=== PATIENT | male | born 1990 | race American Indian/Alaskan Native ===

== ENCOUNTER 2017-06-26 18:04 | Emergency (ER) | payer MEDICAID, OTHER ==
[2017-06-26 18:13] VITALS: BP 130/67; PULSE 95; RESP 18; TEMP 98.9; O2SAT 97
--- NOTE | 2017-06-26 18:45 | ED PDOC ---
HPI: General Adult Time Seen by Provider: 06/26/17 18:10 Chief Complaint (Nursing): Flu-like Symptoms Chief Complaint (Provider): Cough History Per: Patient History/Exam Limitations: no limitations Onset/Duration Of Symptoms: Days (x2), Waxing/Waning Current Symptoms Are (Timing): Still Present Additional Complaint(s): 27 year old male presents to the ED for a cough x3 days. Denies fever, vomiting nausea, vomiting, diarrhea. Past Medical History Reviewed: Historical Data, Nursing Documentation, Vital Signs Vital Signs: Last Vital Signs Temp 98.9 F 06/26/17 18:09 Pulse 95 H 06/26/17 18:09 Resp 18 06/26/17 18:09 BP 130/67 06/26/17 18:09 Pulse Ox 97 06/26/17 18:09 - Medical History PMH: Asthma (as a child) Denies: Chronic Kidney Disease - Surgical History Surgical History: No Surg Hx - Family History Family History: States: Unknown Family Hx - Social History Current smoker - smoking cessation education provided: Yes Ex-Smoker (has not smoked in the last 12 months): Yes Alcohol: None Drugs: Denies - Home Medications Home Medications: Ambulatory Orders Medication Instructions Recorded Carvedilol 6.25 mg PO Q12 #60 tab 10/10/14 Lisinopril 5 mg PO DAILY #30 tab 10/10/14 Albuterol HFA [Ventolin HFA 90 2 puff IH Q4 PRN #1 unit 03/11/16 mcg/actuation (8 g)] Azithromycin [Zithromax] 250 mg PO DAILY #6 tab 03/11/16 Promethazine/Codeine 5 ml PO Q12 PRN #100 ml 06/26/17 [Codeine/Promethazine 10 MG/5 Ml-6.25 MG/5 Ml] Pseudoephedrine [Sudafed Tab] 60 mg PO Q6 PRN #12 tab 06/26/17 - Allergies Allergies/Adverse Reactions: Allergies Allergy/AdvReac Type Severity Reaction Status Date / Time No Known Allergies Allergy Verified 06/26/17 18:09 Review of Systems ROS Statement: Except As Marked, All Systems Reviewed And Found Negative Constitutional: Negative for: Fever Respiratory: Positive for: Cough Gastrointestinal: Negative for: Nausea, Vomiting, Diarrhea Physical Exam - Reviewed Nursing Documentation Reviewed: Yes Vital Signs Reviewed: Yes - Physical Exam Appears: Positive for: Non-toxic, No Acute Distress Head Exam: Positive for: NORMAL INSPECTION Skin: Positive for: Normal Color, Warm, Dry. Negative for: Rash Eye Exam: Positive for: Normal appearance, EOMI, PERRL. Negative for: Nystagmus ENT: Negative for: Normal ENT Inspection (throat mildly irritated.), Nasal Congestion, Tonsillar Exudate, Tonsillar Swelling Cardiovascular/Chest: Positive for: Regular Rate, Rhythm, Chest Non Tender. Negative for: Tachycardia Respiratory: Positive for: Normal Breath Sounds. Negative for: Wheezing, Respiratory Distress Neurologic/Psych: Positive for: Alert, Oriented, Gait - ECG O2 Sat by Pulse Oximetry: 97 (RA) Pulse Ox Interpretation: Normal Medical Decision Making Medical Decision Makin Initial Impression 27 y/o male presenting with cough Initial Plan: * Reevaluation Documented by Марина Irving acting as a scribe for Lucas Levine PA-C. All medical record entries made by the Scribe were at my direction and personally dictated by me. I have reviewed the chart and agree that the record accurately reflects my personal performance of the history, physical exam, medical decision making, and the department course for this patient. I have also personally directed, reviewed, and agree with the discharge instructions and disposition. Disposition - Clinical Impression Clinical Impression: Upper respiratory infection Counseled Patient/Family Regarding: Studies Performed, Need For Followup - Disposition Referrals: [facility] [Outside] Disposition: Routine/Home Disposition Time: 18:40 Condition: FAIR Prescriptions: Promethazine/Codeine [Codeine/Promethazine 10 MG/5 Ml-6.25 MG/5 Ml] 5 ml PO Q12 PRN #100 ml PRN Reason: Cough Pseudoephedrine [Sudafed Tab] 60 mg PO Q6 PRN #12 tab PRN Reason: Nasal Congestion Instructions: Upper Respiratory Infection (ED) Forms: [email or web address] (Italian), [facility] ED School/Work Excuse - POA Present On Arrival: None
== END 2017-06-26 18:33 | disposition home or self-care (01) ==
LOC: H.ER 18:04
DX: J06.9 Acute upper respiratory infection, unspecified (principal); F17.200 Nicotine dependence, unspecified, uncomplicated

== ENCOUNTER 2018-11-27 13:01 | Inpatient (IN) | payer MEDICAID, OTHER ==
[2018-11-27] MEDS ORDERED: Albuterol-Ipratrop 3 mg / 0.5 (3 ml) UD INH STA (13:13)
[2018-11-27] MEDS ORDERED: Sodium Chloride 0.9% 1,000 ML IV STA (13:15)
[2018-11-27] MEDS ORDERED: Albuterol-Ipratrop 3 mg / 0.5 (3 ml) UD ONE (13:29)
[2018-11-27 13:32] LABS: BASO % 0.4 % (0.0-2.0); EOS % 0.5 % (0.0-4.0); HEMOGLOBIN 18.2 g/dL (12.0-18.0); LYMPH # 1.7 K/uL (1.0-4.3); LYMPH % 22.2 % (20.0-40.0); MEAN CELL VOLUME 87.5 fl (80.0-94.0); MEAN CORPUSCULAR HEMOGLOBIN 29.3 pg (27.0-31.0); MEAN CORPUSCULAR HGB CONC 33.5 g/dL (33.0-37.0); MEAN PLATELET VOLUME 10.2 fl (7.2-11.7); MONO # 0.4 K/uL (0.0-0.8); MONO % 5.7 % (0.0-10.0); NEUT # 5.4 K/uL (1.8-7.0); NEUT % 71.2 % (50.0-75.0); NRBC % 0.3 % (0.0-0.0); RBC 6.21 Mil/uL (4.40-5.90); RED CELL DISTRIBUTION WIDTH 14.2 % (11.5-14.5); WHITE BLOOD COUNT 7.6 K/uL (4.8-10.8)
--- NOTE | 2018-11-27 13:36 | RAD ---
Date of service: 11/27/2018 HISTORY: possible admission COMPARISON: 03/11/2016 TECHNIQUE: 1 view obtained. FINDINGS: LUNGS: No consolidation. The right infrahilar bronchovascular markings appear coarse-study slightly rotated towards the right. Some mild inflammatory changes here bronchitis is 1 consideration. Chronicity of this is unknown but not present on the 2015 study as such. PLEURA: No significant pleural effusion identified, no pneumothorax apparent. CARDIOVASCULAR: No aortic atherosclerotic calcification present. Cardiomegaly-similar no pulmonary vascular congestion. OSSEOUS STRUCTURES: No significant abnormalities. VISUALIZED UPPER ABDOMEN: Normal. OTHER FINDINGS: None. IMPRESSION: No dense consolidation. Possible interval right infrahilar Mini hilar bronchial thickening/a perihilar inflammatory changes. Cardiomegaly as before.
[2018-11-27 13:51] LABS: INR 1.2; PROTHROMBIN TIME 13.5 Seconds (9.8-13.1)
[2018-11-27 13:54] LABS: PARTIAL THROMBOPLASTIN TIME 29.8 Seconds (25.6-37.1)
[2018-11-27 13:57] LABS: ALB/GLOB RATIO 1.5 (1.0-2.1); ALBUMIN 3.8 g/dL (3.5-5.0); ALT/SGPT 119 U/L (21-72); AST/SGOT 87 U/L (17-59); BLOOD UREA NITROGEN 12 mg/dl (9-20); CALCIUM 9.1 mg/dL (8.4-10.2); GFR NON-AFRICAN AMERICAN > 60
[2018-11-27 14:09] LABS: B-TYPE NATRIURETIC PEPTIDE 4400 pg/ml (0-450)
--- NOTE | 2018-11-27 14:14 | ED PDOC ---
HPI: SOB/CHF/COPD Time Seen by Provider: 11/27/18 13:13 Chief Complaint (Nursing): Shortness Of Breath Chief Complaint (Provider): Shortness Of Breath History Per: Patient History/Exam Limitations: no limitations Onset/Duration Of Symptoms: Days (x 3) Current Symptoms Are (Timing): Still Present Quality: Squeezing Additional Complaint(s): 28 year old male with no significant medical history presents to the ED for evaluation of worsening shortness of breath for 3 days. Patient feels like he is unable to take a deep breath because of a squeezing sensation in his chest. Patient denies a history of asthma, fever, cough, wheezing, sick contacts or leg swelling. PMD: none provided Past Medical History Reviewed: Historical Data, Nursing Documentation, Vital Signs Vital Signs: Last Vital Signs Temp 97.5 F L 11/27/18 13:10 Pulse 52 L 11/27/18 13:10 Resp 18 11/27/18 13:33 BP 129/87 11/27/18 13:10 Pulse Ox 97 11/27/18 13:10 Primary Care Provider: FAMILY PROVIDER,NO - Medical History PMH: Asthma (as a child) Denies: Chronic Kidney Disease - Surgical History Surgical History: No Surg Hx - Family History Family History: States: Unknown Family Hx - Social History Drugs: Cannabis (occasional; not for weeks) - Home Medications Home Medications: Ambulatory Orders Medication Instructions Recorded Aspirin [Aspirin Chewable] 81 mg PO DAILY #30 tab 11/28/18 Carvedilol [Coreg] 12.5 mg PO Q12 #60 tab 11/28/18 Furosemide [Lasix] 20 mg PO DAILY #30 tablet 11/28/18 Furosemide [Lasix] 20 mg PO DAILY #30 tablet 11/28/18 Lisinopril [Zestril] 5 mg PO DAILY #30 tab 11/28/18 - Allergies Allergies/Adverse Reactions: Allergies Allergy/AdvReac Type Severity Reaction Status Date / Time No Known Allergies Allergy Verified 06/26/17 18:09 Review of Systems ROS Statement: Except As Marked, All Systems Reviewed And Found Negative Constitutional: Negative for: Fever Cardiovascular: Positive for: Chest Pain (squeezing) Respiratory: Positive for: Shortness of Breath. Negative for: Cough, Wheezing Physical Exam - Reviewed Nursing Documentation Reviewed: Yes Vital Signs Reviewed: Yes - Physical Exam Appears: Positive for: Non-toxic, No Acute Distress Head Exam: Positive for: ATRAUMATIC, NORMAL INSPECTION, NORMOCEPHALIC Skin: Positive for: Normal Color, Warm, Dry Eye Exam: Positive for: EOMI, Normal appearance, PERRL Neck: Positive for: Normal, Painless ROM, Supple Cardiovascular/Chest: Positive for: Tachycardia (with regular rhythm). Negative for: Murmur Respiratory: Positive for: Normal Breath Sounds. Negative for: Respiratory Distress Gastrointestinal/Abdominal: Positive for: Normal Exam, Soft Back: Positive for: Normal Inspection Extremity: Positive for: Normal ROM Neurological/Psych: Positive for: Awake, Alert, Normal Tone, Oriented (x 3). Negative for: Motor/Sensory Deficits - Laboratory Results Result Diagrams: 11/28/18 05:45 11/28/18 05:45 Lab Results: PT 13.5 Seconds (9.8-13.1) H 11/27/18 13:23 INR 1.2 11/27/18 13:23 APTT 29.8 Seconds (25.6-37.1) 11/27/18 13:23 Total Bilirubin 1.6 mg/dl (0.2-1.3) H 11/27/18 13:23 AST 87 U/L (17-59) H 11/27/18 13:23 ALT 119 U/L (21-72) H D 11/27/18 13:23 Alkaline Phosphatase 55 U/L (38-126) 11/27/18 13:23 Total Protein 6.4 G/DL (6.3-8.2) 11/27/18 13:23 Albumin 3.8 g/dL (3.5-5.0) 11/27/18 13:23 Globulin 2.6 gm/dL (2.2-3.9) 11/27/18 13:23 Albumin/Globulin Ratio 1.5 (1.0-2.1) 11/27/18 13:23 - ECG ECG: Positive for: Viewed By Me O2 Sat by Pulse Oximetry: 97 Pulse Ox Interpretation: Normal Medical Decision Making Medical Decision Makin:11 MDM: EKG: T wave abnormalities on V1-V4 Workup for pulmonary vs cardiac etiologies Labs including lactate CXR Reassess 14:53 Patient with elevated BNP levels. Will be started on Lasix and admitted to the hospitalist for congestive heart failure. 15:[address] Hatch who requests serial troponins and an echo study before admission. --- Scribe Attestation: Documented by Lucina Clarke, acting as a scribe for Winnie Francois MD. Provider Scribe Attestation: All medical record entries made by the Scribe were at my direction and personally dictated by me. I have reviewed the chart and agree that the record accurately reflects my personal performance of the history, physical exam, medical decision making, and the department course for this patient. I have also personally directed, reviewed, and agree with the discharge instructions and disposition. Disposition - Clinical Impression Clinical Impression: Acute on chronic combined systolic (congestive) and diastolic (congestive) heart failure - Patient ED Disposition Is Patient to be Admitted: Yes - Disposition Disposition Time: 14:53 Condition: STABLE
[2018-11-27 15:39] LABS: BARBITURATES, UR NEGATIVE (NEGATIVE); BENZODIAZEPINES, UR NEGATIVE (NEGATIVE); OPIATES, UR NEGATIVE (NEGATIVE); PHENCYCLIDINE, UR NEGATIVE (NEGATIVE)
--- NOTE | 2018-11-27 15:46 | CP.PCM.HP ---
<AnkushKamla - Last Filed: 11/27/18 17:09> History of Present Illness - History of Present Illness History of Present Illness: 28 yo male with history of Myocarditis (diagnosed at age 17) presented to the ED because of dypsnea for 3 days. Reports that he has difficulty breathing when he lays down and needs use more pillows to decrease the dypsnea. Reports he feels a tightness in his chest related to the dypsnea. He reports when he lays down to sleep he wakes up gasping for air and has to sit up to relieve the dypsnea. Denies leg swelling. Denies chest pain. Denies travel, fever, cough, wheezing, recent illness, abdominal pain, nausea or vomiting. ROS: negative except for stated above in the HPI. PMD: none Medical history: Myocarditis at the age of 17- reports he went to [employer] [facility] with security clearance once (does not remember physician's name) and took medication at that time but never followed up. Asthma when he was a child. Surgical history: Denies Social hx: works at a [employer]. Quit smoking 2 weeks ago but smoked 1-2 cigarettes a day for unknown amount of years. Marijuana use of 2-3 per week. Denies alcohol use or illicit drug use. Family history: reports father's side of the family has heart problems but does not know what type of heart problems Allergies: N.K.D.A No home medications ED course: Vital signs stable. EKG: T wave abnormalities on V1-V4 Workup for pulmonary vs cardiac etiologies Labs including lactate CXR Lasix 40mg IVP x1 Present on Admission - Present on Admission Any Indicators Present on Admission: No Past Patient History - Past Medical History & Family History Past Medical History?: Yes - Past Social History Drugs: Cannabis (occasional; not for weeks) - CARDIAC Other/Comment: Hx of Myocarditis - PULMONARY Hx Asthma: Yes (as a child) - NEUROLOGICAL Hx Neurological Disorder: No - HEENT Hx HEENT Problems: No - RENAL Hx Chronic Kidney Disease: No - ENDOCRINE/METABOLIC Hx Endocrine Disorders: No - HEMATOLOGICAL/ONCOLOGICAL Hx Blood Disorders: No - INTEGUMENTARY Hx Dermatological Problems: No - MUSCULOSKELETAL/RHEUMATOLOGICAL Hx Musculoskeletal Disorders: No Hx Falls: No - GASTROINTESTINAL Hx Gastrointestinal Disorders: No - GENITOURINARY/GYNECOLOGICAL Hx Genitourinary Disorders: No - PSYCHIATRIC Hx Psychophysiologic Disorder: No Hx Substance Use: Yes - SURGICAL HISTORY Hx Surgeries: No - ANESTHESIA Hx Anesthesia: No Hx Anesthesia Reactions: No Meds Allergies/Adverse Reactions: Allergies Allergy/AdvReac Type Severity Reaction Status Date / Time No Known Allergies Allergy Verified 06/26/17 18:09 Physical Exam - Constitutional Appears: In Acute Distress - Head Exam Head Exam: NORMAL INSPECTION - Eye Exam Eye Exam: Normal appearance - ENT Exam ENT Exam: Mucous Membranes Moist - Neck Exam Neck exam: Positive for: Normal Inspection - Respiratory Exam Respiratory Exam: Decreased Breath Sounds, Rales. absent: Accessory Muscle Use, Chest Wall Tenderness, Prolonged Expiratory Phase, Rhonchi, Wheezes, Respiratory Distress, Stridor - Cardiovascular Exam Cardiovascular Exam: Tachycardia, +S1, +S2 - GI/Abdominal Exam GI & Abdominal Exam: Normal Bowel Sounds, Soft. absent: Diminished Bowel Sounds, Distended, Firm, Guarding, Rebound, Rigid, Tenderness - Extremities Exam Extremities exam: Positive for: full ROM, normal inspection, pedal pulses present. Negative for: calf tenderness, joint swelling, normal capillary refill, pedal edema, tenderness - Back Exam Back exam: NORMAL INSPECTION - Neurological Exam Neurological exam: Alert, Oriented x3 - Psychiatric Exam Psychiatric exam: Normal Affect, Normal Mood - Skin Skin Exam: Dry, Intact, Normal Color, Warm Results - Vital Signs Recent Vital Signs: Last Vital Signs Temp 97.5 F L 11/27/18 13:10 Pulse 52 L 11/27/18 13:10 Resp 18 11/27/18 13:33 BP 129/87 11/27/18 13:10 Pulse Ox 97 11/27/18 15:21 - Labs Result Diagrams: 11/27/18 13:23 11/27/18 13:23 Labs: Laboratory Results - last 24 hr 11/27/18 11/27/18 11/27/18 13:23 13:23 13:23 WBC 7.6 RBC 6.21 H Hgb 18.2 H Hct 54.3 H MCV 87.5 MCH 29.3 MCHC 33.5 RDW 14.2 Plt Count 205 MPV 10.2 Neut % (Auto) 71.2 Lymph % (Auto) 22.2 [place] % (Auto) 5.7 Eos % (Auto) 0.5 Baso % (Auto) 0.4 Neut # (Auto) 5.4 Lymph # (Auto) 1.7 [place] # (Auto) 0.4 Eos # (Auto) 0.0 Baso # (Auto) 0.0 PT 13.5 H INR 1.2 APTT 29.8 D-Dimer, Quantitative Cancelled Sodium 138 Potassium 3.9 Chloride 104 Carbon Dioxide 24 Anion Gap 14 BUN 12 Creatinine 0.9 Est GFR ( Amer) > 60 Est GFR (Non-Af Amer) > 60 Random Glucose 107 Lactic Acid Calcium 9.1 Total Bilirubin 1.6 H AST 87 H ALT 119 H D Alkaline Phosphatase 55 Troponin I 0.0790 NT-Pro-B Natriuret Pep 4400 H Total Protein 6.4 Albumin 3.8 Globulin 2.6 Albumin/Globulin Ratio 1.5 Urine Opiates Screen Urine Methadone Screen Ur Barbiturates Screen Ur Phencyclidine Scrn Ur Amphetamines Screen U Benzodiazepines Scrn U Oth Cocaine Metabols U Cannabinoids Screen 11/27/18 11/27/18 11/27/18 13:23 15:00 15:00 WBC RBC Hgb Hct MCV MCH MCHC RDW Plt Count MPV Neut % (Auto) Lymph % (Auto) [place] % (Auto) Eos % (Auto) Baso % (Auto) Neut # (Auto) Lymph # (Auto) [place] # (Auto) Eos # (Auto) Baso # (Auto) PT INR APTT D-Dimer, Quantitative 778 H Sodium Potassium Chloride Carbon Dioxide Anion Gap BUN Creatinine Est GFR ( Amer) Est GFR (Non-Af Amer) Random Glucose Lactic Acid 1.8 Calcium Total Bilirubin AST ALT Alkaline Phosphatase Troponin I NT-Pro-B Natriuret Pep Total Protein Albumin Globulin Albumin/Globulin Ratio Urine Opiates Screen Negative Urine Methadone Screen Negative Ur Barbiturates Screen Negative Ur Phencyclidine Scrn Negative Ur Amphetamines Screen Negative U Benzodiazepines Scrn Negative U Oth Cocaine Metabols Negative U Cannabinoids Screen Positive H Assessment & Plan - Assessment and Plan (Free Text) Assessment: 28 yo male with history of Myocarditis (diagnosed at age 17) presented to the ED because of dypsnea for 3 days admitted for CHF. Plan: CHF exacerbation - Admit to telemetry - Pro BNP: 4400 - Chest Xray: cardiomegaly - ECHO 10/08/14 : Left ventricle moderately dilated; severe hypokinesia; left ventricle systolic function severely impaired. EF: 15-20% ; RVSP: 33 mmHg - Cardiac Consult: Dr. Hatch - F/U repeat ECHO - Lactic acid WNL - Lasix 40mg IVP daily - troponin x1 negative, follow up troponins - Continue previous medications - Diet heart healthy - TSH - HIV Transaminitis - AST/ ALT: 87/ 119 - Follow up labs Elevated D-Dimer - 778 - Tachycardia - CTA of chest to rule out pe Cannabinoid use - use of marijuana 2 to 3 times a week. DVT prophylaxis - Lovenox <Yanez,Carlos D - Last Filed: 11/27/18 19:27> Results - Vital Signs Recent Vital Signs: Last Vital Signs Temp 97.8 F 11/27/18 16:34 Pulse 103 H 11/27/18 16:34 Resp 20 11/27/18 16:34 BP 147/64 11/27/18 16:54 Pulse Ox 100 11/27/18 16:34 - Labs Result Diagrams: 11/27/18 13:23 11/27/18 13:23 Labs: Laboratory Results - last 24 hr 11/27/18 11/27/18 11/27/18 13:23 13:23 13:23 WBC 7.6 RBC 6.21 H Hgb 18.2 H Hct 54.3 H MCV 87.5 MCH 29.3 MCHC 33.5 RDW 14.2 Plt Count 205 MPV 10.2 Neut % (Auto) 71.2 Lymph % (Auto) 22.2 [place] % (Auto) 5.7 Eos % (Auto) 0.5 Baso % (Auto) 0.4 Neut # (Auto) 5.4 Lymph # (Auto) 1.7 [place] # (Auto) 0.4 Eos # (Auto) 0.0 Baso # (Auto) 0.0 PT 13.5 H INR 1.2 APTT 29.8 D-Dimer, Quantitative Cancelled Sodium 138 Potassium 3.9 Chloride 104 Carbon Dioxide 24 Anion Gap 14 BUN 12 Creatinine 0.9 Est GFR ( Amer) > 60 Est GFR (Non-Af Amer) > 60 Random Glucose 107 Lactic Acid Calcium 9.1 Total Bilirubin 1.6 H AST 87 H ALT 119 H D Alkaline Phosphatase 55 Troponin I 0.0790 NT-Pro-B Natriuret Pep 4400 H Total Protein 6.4 Albumin 3.8 Globulin 2.6 Albumin/Globulin Ratio 1.5 TSH 3rd Generation 1.94 Urine Opiates Screen Urine Methadone Screen Ur Barbiturates Screen Ur Phencyclidine Scrn Ur Amphetamines Screen U Benzodiazepines Scrn U Oth Cocaine Metabols U Cannabinoids Screen 11/27/18 11/27/18 11/27/18 13:23 15:00 15:00 WBC RBC Hgb Hct MCV MCH MCHC RDW Plt Count MPV Neut % (Auto) Lymph % (Auto) [place] % (Auto) Eos % (Auto) Baso % (Auto) Neut # (Auto) Lymph # (Auto) [place] # (Auto) Eos # (Auto) Baso # (Auto) PT INR APTT D-Dimer, Quantitative 778 H Sodium Potassium Chloride Carbon Dioxide Anion Gap BUN Creatinine Est GFR ( Amer) Est GFR (Non-Af Amer) Random Glucose Lactic Acid 1.8 Calcium Total Bilirubin AST ALT Alkaline Phosphatase Troponin I NT-Pro-B Natriuret Pep Total Protein Albumin Globulin Albumin/Globulin Ratio TSH 3rd Generation Urine Opiates Screen Negative Urine Methadone Screen Negative Ur Barbiturates Screen Negative Ur Phencyclidine Scrn Negative Ur Amphetamines Screen Negative U Benzodiazepines Scrn Negative U Oth Cocaine Metabols Negative U Cannabinoids Screen Positive H Attending/Attestation - Attestation I have personally seen and examined this patient.: Yes I have fully participated in the care of the patient.: Yes I have reviewed all pertinent clinical information: Yes Notes (Text): 11/27/18 19:26 Patient seen and examined with resident. Case discussed and agreed with assessment and plan of management.
[2018-11-27] MEDS ORDERED: Sodium Chloride 0.9% 50 ML IV ONE (17:14)
[2018-11-27] MEDS ORDERED: Iodixanol 320 MG/ML 100 ML BOTTLE IV ONE (17:14)
--- NOTE | 2018-11-27 18:13 | CT ---
Date of service: 11/27/2018 PROCEDURE: CT Chest with contrast (Pulmonary Angiogram) HISTORY: tachycardia and elevated D-dimer COMPARISON: November 27, 2018. Single-view chest TECHNIQUE: Axial computed tomography images were obtained of the chest in the pulmonary arterial phase of enhancement. Coronal and sagittal reformatted images were created and reviewed. Intravenous contrast dose: 90 cc Visipaque [id number]. Mean Hounsfield value in the main pulmonary artery: 422.80 Radiation dose: Total exam DLP = <inf_radiation_dlp> mGy-cm. This CT exam was performed using one or more of the following dose reduction techniques: Automated exposure control, adjustment of the mA and/or kV according to patient size, and/or use of iterative reconstruction technique. FINDINGS: PULMONARY ARTERIES: Unremarkable. No pulmonary embolism. AORTA: No acute findings. No thoracic aortic aneurysm. No atherosclerotic calcification or mural plaque present. LUNGS: Unremarkable. No nodule, mass or pulmonary consolidation. PLEURAL SPACES: Unremarkable. No effusion or pneumothorax. HEART: Marked cardiomegaly. Primarily left ventricular enlargement and to lesser extent left atrial enlargement. No significant pericardial effusion. Reflux of contrast into the IVC and hepatic veins indicative of a component of right heart failure. Considerable admixture of blood and contrast in inferior vena cava and hepatic veins noted not likely to represent thrombus. LYMPH NODES: No lymphadenopathy. BONES, CHEST WALL: Unremarkable. No fracture or destructive lesion OTHER FINDINGS: 2.5 cm cyst in the spleen. IMPRESSION: Unremarkable CT pulmonary angiogram. No pulmonary embolus. Marked cardiomegaly primarily left ventricle and to lesser extent left atrium. Evidence of right heart failure, considerable reflux of contrast into the IVC and hepatic veins identified. Small bilateral pleural effusions.
--- NOTE | 2018-11-27 19:27 | CARD ---
APPROVED REPORT Date of service: 11/27/2018 EXAM: Two-dimensional and M-mode echocardiogram with Doppler and color Doppler. Other Information Quality : GoodRhythm : NSR INDICATION Congestive Heart Failure 2D DIMENSIONS IVSd1.08 (0.7-1.1cm)LVDd6.83 (3.9-5.9cm) LVOT Diameter2.21 (1.8-2.4cm)PWd0.42 (0.7-1.1cm) IVSs0.91 (0.8-1.2cm)LVDs6.57 (2.5-4.0cm) FS (%) 3.9 %PWs1.61 (0.8-1.2cm) M-Mode DIMENSIONS Left Atrium (MM)4.65 (2.5-4.0cm)IVSd0.71 (0.7-1.1cm) Aortic Root3.00 (2.2-3.7cm)LVDd7.24 (4.0-5.6cm) Aortic Cusp Exc.2.15 (1.5-2.0cm)PWd0.74 (0.7-1.1cm) IVSs0.59 cmFS (%) 3 % LVDs7.03 (2.0-3.8cm)PWs0.62 cm Aortic Valve AoV Peak Rorebgki33.1cm/sAoV VTI9.5cmAO Peak GR.1mmHg LVOT Peak Mmadcuwm30.2cm/sLVOT VTI5.50cmAO Mean GR.1mmHg AFSHIN (VMAX)1.18pz9QCA (VTI)1.30cm2 Mitral Valve E/A ratio0.0 TDI E/Lateral E'0.0E/Medial E'0.0 Tricuspid Valve TR Peak [id number]/sTR Peak Gr.46mmHg LEFT VENTRICLE The Left Ventricle is dilated. There is normal left ventricular wall thickness. The systolic function is severely impaired. The estimated ejection fraction is 20-25% There is global hypokinesis of the left ventricle. Transmitral Doppler flow pattern is Grade II-pseudonormal filling dynamics. No left ventricle thrombus noted on this study. There is no ventricular septal defect visualized. There is no left ventricular aneurysm. There is no mass noted in the left ventricle. RIGHT VENTRICLE The right ventricle is normal size. There is normal right ventricular wall thickness. The right ventricular systolic function is normal. ATRIA The left atrium is mildly dilated. The right atrium size is normal. The interatrial septum is intact with no evidence for an atrial septal defect. AORTIC VALVE The aortic valve is normal in structure. No aortic regurgitation is present. There is no aortic valvular stenosis. There is no aortic valvular vegetation. MITRAL VALVE The mitral valve is normal in structure. There is no evidence of mitral valve prolapse. There is no mitral valve stenosis. There is moderate mitral valve regurgitation noted. TRICUSPID VALVE The tricuspid valve is normal in structure. There is moderate tricuspid valve regurgitation noted. RVSP is calculated at 62 mm Hg. There is no tricuspid valve prolapse or vegetation. There is no tricuspid valve stenosis. PULMONIC VALVE The pulmonary valve is normal in structure. There is trace pulmonic valvular regurgitation. There is no pulmonic valvular stenosis. GREAT VESSELS The aortic root is normal in size. The ascending aorta is normal in size. The pulmonary artery is normal. The IVC is dilated in size and collapses <50% with inspiration. PERICARDIAL EFFUSION There is no pericardial effusion. There is no pleural effusion. <Conclusion> The Left Ventricle is dilated. The systolic function is severely impaired. The estimated ejection fraction is 20-25% Transmitral Doppler flow pattern is Grade II-pseudonormal filling dynamics. The left atrium is mildly dilated. There is moderate mitral valve regurgitation noted. There is moderate tricuspid valve regurgitation noted. RVSP is calculated at 62 mm Hg. The IVC is dilated in size and collapses <50% with inspiration.
--- NOTE | 2018-11-27 19:40 | CARD ---
APPROVED REPORT Date of service: 11/27/2018 EKG Measurement Heart [id number] <Conclusion> Sinus tachycardia with occasional premature ventricular complexes Left atrial enlargement ST & T wave abnormality, consider lateral ischemia Abnormal ECG
[2018-11-27] MEDS ORDERED: CARVEDILOL 6.25 MG PO SCH (21:00)
[2018-11-28 06:29] LABS: HEMOGLOBIN 16.3 g/dL (12.0-18.0); MEAN CELL VOLUME 87.7 fl (80.0-94.0); MEAN CORPUSCULAR HEMOGLOBIN 28.6 pg (27.0-31.0); MEAN CORPUSCULAR HGB CONC 32.6 g/dL (33.0-37.0); RBC 5.72 Mil/uL (4.40-5.90); RED CELL DISTRIBUTION WIDTH 14.7 % (11.5-14.5); WHITE BLOOD COUNT 6.1 K/uL (4.8-10.8)
[2018-11-28 06:47] LABS: LDL CHOLESTEROL 128 mg/dL (0-129)
[2018-11-28 06:49] LABS: ALB/GLOB RATIO 1.3 (1.0-2.1); ALBUMIN 2.9 g/dL (3.5-5.0); ALT/SGPT 96 U/L (21-72); AST/SGOT 55 U/L (17-59); BLOOD UREA NITROGEN 14 mg/dl (9-20); CALCIUM 8.5 mg/dL (8.4-10.2); GFR NON-AFRICAN AMERICAN > 60; HDL CHOLESTEROL 29 MG/DL (30-70)
[2018-11-28 08:19] LABS: IRON 50 ug/dL (49-181)
[2018-11-28 08:28] LABS: % IRON SATURATION 15 % (20-55); TOTAL IRON BINDING CAPACITY 345 ug/dL (250-450)
--- NOTE | 2018-11-28 08:40 | CP.PCM.PN ---
<DianadaronkenanNormanKamla - Last Filed: 11/28/18 08:35> Subjective - Date & Time of Evaluation Date of Evaluation: 11/28/18 Time of Evaluation: 08:35 - Subjective Subjective: Patient seen and examined at bedside. No acute overnight events. NO complaints. Reports no dypsnea this morning. Able to lay down flat without dypsnea like sy mptoms. Objective - Vital Signs/Intake and Output Vital Signs (last 24 hours): Temp Pulse Resp BP Pulse Ox 97.4 F L 92 H 20 129/91 H 97 11/28/18 08:00 11/28/18 08:00 11/28/18 08:00 11/28/18 08:00 11/28/18 08:00 - Medications Medications: Current Medications Carvedilol (Coreg) 6.25 mg PO Q12 [facility] Last Admin: 11/27/18 22:24 Dose: 6.25 mg Enoxaparin Sodium (Lovenox) 40 mg SC DAILY [facility]; Protocol Furosemide (Lasix) 40 mg IVP DAILY [facility] Ibuprofen (Motrin Tab) 600 mg PO Q6 [facility] Last Admin: 11/28/18 04:31 Dose: Not Given Lisinopril (Zestril) 5 mg PO DAILY [facility] - Labs Labs: 11/28/18 05:45 11/28/18 05:45 PT 13.5 Seconds (9.8-13.1) H 11/27/18 13:23 INR 1.2 11/27/18 13:23 APTT 29.8 Seconds (25.6-37.1) 11/27/18 13:23 - Constitutional Appears: No Acute Distress - Eye Exam Eye Exam: Normal appearance - ENT Exam ENT Exam: Mucous Membranes Moist - Respiratory Exam Respiratory Exam: Clear to Ausculation Bilateral, NORMAL BREATHING PATTERN. absent: Accessory Muscle Use, Chest Wall Tenderness, Decreased Breath Sounds, Prolonged Expiratory Phase, Rales, Rhonchi, Wheezes, Respiratory Distress, Stridor - Cardiovascular Exam Cardiovascular Exam: +S1, +S2 - GI/Abdominal Exam GI & Abdominal Exam: Soft, Normal Bowel Sounds. absent: Distended, Firm, Guarding, Rigid, Tenderness, Rebound - Extremities Exam Extremities Exam: Full ROM, Normal Capillary Refill, Normal Inspection. absent: Calf Tenderness, Joint Swelling, Pedal Edema, Tenderness - Neurological Exam Neurological Exam: Alert, Awake, Oriented x3 - Psychiatric Exam Psychiatric exam: Normal Affect, Normal Mood - Skin Skin Exam: Dry, Intact, Normal Color, Warm Assessment and Plan - Assessment and Plan (Free Text) Assessment: 28 yo male with history of Myocarditis (diagnosed at age 17) presented to the ED because of dypsnea for 3 days admitted for CHF exacerbation. Plan: Dilated cardiomyopathy - unknown cause - Pro BNP: 4400 - Chest Xray: cardiomegaly - Cardiac Consult: Dr. Hatch - ECHO 11/27/18: Systolic function severely impaired; EF: 20-25 %; Grade II pseudonormal filling dynamics; left atrium mildly dilated; moderate mitral and tricuspid valve regurg. RVSP 62 is mmHg. - Lasix 40mg IVP daily - troponin x3 negative - Continue previous medications: lisinopril 5 mg daily and Coreg 6.25 mg Q12H - Diet heart healthy - TSH: 1.94 (WNL) - HIV pending Transaminitis - AST/ ALT: 87/ 119 - trending down Elevated D-Dimer - 778 - Tachycardia - CTA of chest: negative for PE; small bilateral pleural effusions. Cannabinoid use - use of marijuana 2 to 3 times a week. DVT prophylaxis - Lovenox <Yanez,Carlos D - Last Filed: 11/28/18 10:41> Objective - Vital Signs/Intake and Output Vital Signs (last 24 hours): Temp Pulse Resp BP Pulse Ox 97.4 F L 92 H 20 129/91 H 97 11/28/18 08:00 11/28/18 08:00 11/28/18 08:00 11/28/18 08:57 11/28/18 08:00 - Medications Medications: Current Medications Carvedilol (Coreg) 6.25 mg PO Q12 [facility] Last Admin: 11/28/18 08:57 Dose: 6.25 mg Enoxaparin Sodium (Lovenox) 40 mg SC DAILY [facility]; Protocol Last Admin: 11/28/18 08:56 Dose: 40 mg Furosemide (Lasix) 40 mg IVP DAILY [facility] Last Admin: 11/28/18 08:57 Dose: 40 mg Lisinopril (Zestril) 5 mg PO DAILY [facility] Last Admin: 11/28/18 08:57 Dose: 5 mg - Labs Labs: 11/28/18 05:45 11/28/18 05:45 PT 13.5 Seconds (9.8-13.1) H 11/27/18 13:23 INR 1.2 11/27/18 13:23 APTT 29.8 Seconds (25.6-37.1) 11/27/18 13:23 Attending/Attestation - Attestation I have personally seen and examined this patient.: Yes I have fully participated in the care of the patient.: Yes I have reviewed all pertinent clinical information, including history, physical exam and plan: Yes Notes (Text): 11/28/18 10:41 Patient seen and examined with resident. Case discussed and agreed with assess ment and plan.
[2018-11-28] MEDS ORDERED: LISINOPRIL 5 MG PO SCH (09:00)
[2018-11-28] MEDS ORDERED: Enoxaparin 40 mg Syringe SC SCH (09:00)
--- NOTE | 2018-11-28 11:43 | CP.PCM.CON ---
Past Patient History - Past Medical History & Family History Past Medical History?: Yes - Past Social History Smoking Status: Former Smoker - CARDIAC Hx Cardiac Disorders: Yes Other/Comment: Hx of Myocarditis - PULMONARY Hx Respiratory Disorders: Yes Hx Asthma: Yes (as a child) - NEUROLOGICAL Hx Neurological Disorder: No - HEENT Hx HEENT Problems: No - RENAL Hx Chronic Kidney Disease: No - ENDOCRINE/METABOLIC Hx Endocrine Disorders: No - HEMATOLOGICAL/ONCOLOGICAL Hx Blood Disorders: No - INTEGUMENTARY Hx Dermatological Problems: No - MUSCULOSKELETAL/RHEUMATOLOGICAL Hx Musculoskeletal Disorders: No Hx Falls: No - GASTROINTESTINAL Hx Gastrointestinal Disorders: No - GENITOURINARY/GYNECOLOGICAL Hx Genitourinary Disorders: No - PSYCHIATRIC Hx Psychophysiologic Disorder: Yes Hx Substance Use: Yes (Marijuana) - SURGICAL HISTORY Hx Surgeries: No - ANESTHESIA Hx Anesthesia: No Hx Anesthesia Reactions: No Meds Allergies/Adverse Reactions: Allergies Allergy/AdvReac Type Severity Reaction Status Date / Time No Known Allergies Allergy Verified 06/26/17 18:09 - Medications Medications: Current Medications Carvedilol (Coreg) 6.25 mg PO Q12 [facility] Last Admin: 11/28/18 08:57 Dose: 6.25 mg Enoxaparin Sodium (Lovenox) 40 mg SC DAILY [facility]; Protocol Last Admin: 11/28/18 08:56 Dose: 40 mg Furosemide (Lasix) 40 mg IVP DAILY [facility] Last Admin: 11/28/18 08:57 Dose: 40 mg Lisinopril (Zestril) 5 mg PO DAILY [facility] Last Admin: 11/28/18 08:57 Dose: 5 mg Results - Vital Signs Recent Vital Signs: Last Vital Signs Temp 97.4 F L 11/28/18 08:00 Pulse 92 H 11/28/18 08:00 Resp 20 11/28/18 08:00 BP 129/91 H 11/28/18 08:57 Pulse Ox 97 11/28/18 08:00 - Labs Result Diagrams: 11/28/18 05:45 11/28/18 05:45 Labs: Laboratory Results - last 24 hr 11/27/18 11/27/18 11/27/18 13:23 13:23 13:23 WBC 7.6 RBC 6.21 H Hgb 18.2 H Hct 54.3 H MCV 87.5 MCH 29.3 MCHC 33.5 RDW 14.2 Plt Count 205 MPV 10.2 Neut % (Auto) 71.2 Lymph % (Auto) 22.2 [place] % (Auto) 5.7 Eos % (Auto) 0.5 Baso % (Auto) 0.4 Neut # (Auto) 5.4 Lymph # (Auto) 1.7 [place] # (Auto) 0.4 Eos # (Auto) 0.0 Baso # (Auto) 0.0 PT 13.5 H INR 1.2 APTT 29.8 D-Dimer, Quantitative Cancelled Sodium 138 Potassium 3.9 Chloride 104 Carbon Dioxide 24 Anion Gap 14 BUN 12 Creatinine 0.9 Est GFR ( Amer) > 60 Est GFR (Non-Af Amer) > 60 Random Glucose 107 Lactic Acid Calcium 9.1 Iron TIBC % Saturation Ferritin Total Bilirubin 1.6 H AST 87 H ALT 119 H D Alkaline Phosphatase 55 Troponin I 0.0790 NT-Pro-B Natriuret Pep 4400 H Total Protein 6.4 Albumin 3.8 Globulin 2.6 Albumin/Globulin Ratio 1.5 Triglycerides Cholesterol LDL Cholesterol Direct HDL Cholesterol TSH 3rd Generation 1.94 Urine Opiates Screen Urine Methadone Screen Ur Barbiturates Screen Ur Phencyclidine Scrn Ur Amphetamines Screen U Benzodiazepines Scrn U Oth Cocaine Metabols U Cannabinoids Screen 11/27/18 11/27/18 11/27/18 13:23 15:00 15:00 WBC RBC Hgb Hct MCV MCH MCHC RDW Plt Count MPV Neut % (Auto) Lymph % (Auto) [place] % (Auto) Eos % (Auto) Baso % (Auto) Neut # (Auto) Lymph # (Auto) [place] # (Auto) Eos # (Auto) Baso # (Auto) PT INR APTT D-Dimer, Quantitative 778 H Sodium Potassium Chloride Carbon Dioxide Anion Gap BUN Creatinine Est GFR ( Amer) Est GFR (Non-Af Amer) Random Glucose Lactic Acid 1.8 Calcium Iron TIBC % Saturation Ferritin Total Bilirubin AST ALT Alkaline Phosphatase Troponin I NT-Pro-B Natriuret Pep Total Protein Albumin Globulin Albumin/Globulin Ratio Triglycerides Cholesterol LDL Cholesterol Direct HDL Cholesterol TSH 3rd Generation Urine Opiates Screen Negative Urine Methadone Screen Negative Ur Barbiturates Screen Negative Ur Phencyclidine Scrn Negative Ur Amphetamines Screen Negative U Benzodiazepines Scrn Negative U Oth Cocaine Metabols Negative U Cannabinoids Screen Positive H 11/27/18 11/28/18 11/28/18 20:45 05:45 05:45 WBC 6.1 RBC 5.72 Hgb 16.3 Hct 50.2 MCV 87.7 MCH 28.6 MCHC 32.6 L RDW 14.7 H Plt Count 184 MPV Neut % (Auto) Lymph % (Auto) [place] % (Auto) Eos % (Auto) Baso % (Auto) Neut # (Auto) Lymph # (Auto) [place] # (Auto) Eos # (Auto) Baso # (Auto) PT INR APTT D-Dimer, Quantitative Sodium 137 Potassium 3.6 Chloride 104 Carbon Dioxide 27 Anion Gap 10 BUN 14 Creatinine 1.0 Est GFR ( Amer) > 60 Est GFR (Non-Af Amer) > 60 Random Glucose 82 Lactic Acid Calcium 8.5 Iron TIBC % Saturation Ferritin Total Bilirubin 1.0 AST 55 ALT 96 H Alkaline Phosphatase 47 Troponin I 0.0660 0.0760 NT-Pro-B Natriuret Pep Total Protein 5.2 L Albumin 2.9 L D Globulin 2.3 Albumin/Globulin Ratio 1.3 Triglycerides 90 D Cholesterol 162 LDL Cholesterol Direct 128 HDL Cholesterol 29 L TSH 3rd Generation Urine Opiates Screen Urine Methadone Screen Ur Barbiturates Screen Ur Phencyclidine Scrn Ur Amphetamines Screen U Benzodiazepines Scrn U Oth Cocaine Metabols U Cannabinoids Screen 11/28/18 11/28/18 07:30 07:30 WBC RBC Hgb Hct MCV MCH MCHC RDW Plt Count MPV Neut % (Auto) Lymph % (Auto) [place] % (Auto) Eos % (Auto) Baso % (Auto) Neut # (Auto) Lymph # (Auto) [place] # (Auto) Eos # (Auto) Baso # (Auto) PT INR APTT D-Dimer, Quantitative Sodium Potassium Chloride Carbon Dioxide Anion Gap BUN Creatinine Est GFR ( Amer) Est GFR (Non-Af Amer) Random Glucose Lactic Acid Calcium Iron 50 TIBC 345 % Saturation 15 L Ferritin 88.2 Total Bilirubin AST ALT Alkaline Phosphatase Troponin I NT-Pro-B Natriuret Pep Total Protein Albumin Globulin Albumin/Globulin Ratio Triglycerides Cholesterol LDL Cholesterol Direct HDL Cholesterol TSH 3rd Generation Urine Opiates Screen Urine Methadone Screen Ur Barbiturates Screen Ur Phencyclidine Scrn Ur Amphetamines Screen U Benzodiazepines Scrn U Oth Cocaine Metabols U Cannabinoids Screen Assessment & Plan (1) DCM (dilated cardiomyopathy) Status: Acute (2) Hx of myocarditis Status: Acute (3) Acute on chronic combined systolic (congestive) and diastolic (congestive) heart failure Status: Acute (4) Mitral regurgitation Status: Acute - Assessment and Plan (Free Text) Plan: PT HAS A HX OF CM SINCE HE HAD MYOCARDITIS IN 2014. PT IS NOT TAKING MEDS AND IS NOT FOLLOWING UP WITH ANY PHYSICIANS. I ORDERED COREG, LISINOPRIL, ASA, AND DECREASED LASIX. WHEN HE IS D/C HE CAN GET THESE AT [facility] FOR 5 DOLLARS EACH A MONTH. I STRESSED THE NEED FOR MEDS AND THAT HE NEEDS TO AVOID ETOH, DRUGS AND CAFFEINE. CHARGE NURSE CONSULTED TO HELP GET PT INSURANCE.
--- NOTE | 2018-11-28 15:44 | CP.PCM.DIS ---
<Kamla Lechuga - Last Filed: 11/28/18 16:35> Provider - Provider Date of Admission: 11/27/18 14:56 Attending physician: Carlos Yanez MD Consults: 11/27/18 14:57 Cardiology Consult Stat Comment: Consulting Provider: Jeffery Hatch Consulting Physician: Jeffery Hatch Reason for Consult: New onset CHF 11/27/18 22:32 Social Work Referral Routine Comment: Marijuana use Physician Instructions: Reason For Exam: As per Admission Assessment Time Spent in preparation of Discharge (in minutes): 30 Diagnosis - Discharge Diagnosis (1) DCM (dilated cardiomyopathy) Status: Acute Hospital Course - Lab Results Lab Results: Most Recent Lab Values WBC 6.1 K/uL (4.8-10.8) 11/28/18 05:45 RBC 5.72 Mil/uL (4.40-5.90) 11/28/18 05:45 Hgb 16.3 g/dL (12.0-18.0) 11/28/18 05:45 Hct 50.2 % (35.0-51.0) 11/28/18 05:45 MCV 87.7 fl (80.0-94.0) 11/28/18 05:45 MCH 28.6 pg (27.0-31.0) 11/28/18 05:45 MCHC 32.6 g/dL (33.0-37.0) L 11/28/18 05:45 RDW 14.7 % (11.5-14.5) H 11/28/18 05:45 Plt Count 184 K/uL (130-400) 11/28/18 05:45 MPV 10.2 fl (7.2-11.7) 11/27/18 13:23 Neut % (Auto) 71.2 % (50.0-75.0) 11/27/18 13:23 Lymph % (Auto) 22.2 % (20.0-40.0) 11/27/18 13:23 [place] % (Auto) 5.7 % (0.0-10.0) 11/27/18 13:23 Eos % (Auto) 0.5 % (0.0-4.0) 11/27/18 13:23 Baso % (Auto) 0.4 % (0.0-2.0) 11/27/18 13:23 Neut # (Auto) 5.4 K/uL (1.8-7.0) 11/27/18 13:23 Lymph # (Auto) 1.7 K/uL (1.0-4.3) 11/27/18 13:23 [place] # (Auto) 0.4 K/uL (0.0-0.8) 11/27/18 13:23 Eos # (Auto) 0.0 K/uL (0.0-0.7) 11/27/18 13:23 Baso # (Auto) 0.0 K/uL (0.0-0.2) 11/27/18 13:23 PT 13.5 Seconds (9.8-13.1) H 11/27/18 13:23 INR 1.2 11/27/18 13:23 APTT 29.8 Seconds (25.6-37.1) 11/27/18 13:23 D-Dimer, Quantitative 778 ng/mlDDU (0-230) H 11/27/18 15:00 Sodium 137 mmol/l (132-148) 11/28/18 05:45 Potassium 3.6 MMOL/L (3.6-5.0) 11/28/18 05:45 Chloride 104 mmol/L (98-107) 11/28/18 05:45 Carbon Dioxide 27 mmol/L (22-30) 11/28/18 05:45 Anion Gap 10 (10-20) 11/28/18 05:45 BUN 14 mg/dl (9-20) 11/28/18 05:45 Creatinine 1.0 mg/dl (0.8-1.5) 11/28/18 05:45 Est GFR ( Amer) > 60 11/28/18 05:45 Est GFR (Non-Af Amer) > 60 11/28/18 05:45 Random Glucose 82 mg/dL (75-110) 11/28/18 05:45 Hemoglobin A1c 6.0 % (4.2-6.5) 11/28/18 05:45 Lactic Acid 1.8 mmol/L (0.7-2.1) 11/27/18 13:23 Calcium 8.5 mg/dL (8.4-10.2) 11/28/18 05:45 Iron 50 ug/dL (49-181) 11/28/18 07:30 TIBC 345 ug/dL (250-450) 11/28/18 07:30 % Saturation 15 % (20-55) L 11/28/18 07:30 Ferritin 88.2 ng/Ml (17.9-464) 11/28/18 07:30 Total Bilirubin 1.0 mg/dl (0.2-1.3) 11/28/18 05:45 AST 55 U/L (17-59) 11/28/18 05:45 ALT 96 U/L (21-72) H 11/28/18 05:45 Alkaline Phosphatase 47 U/L (38-126) 11/28/18 05:45 Troponin I 0.0760 ng/mL (0.00-0.120) 11/28/18 05:45 NT-Pro-B Natriuret Pep 4400 pg/ml (0-450) H 11/27/18 13:23 Total Protein 5.2 G/DL (6.3-8.2) L 11/28/18 05:45 Albumin 2.9 g/dL (3.5-5.0) L D 11/28/18 05:45 Globulin 2.3 gm/dL (2.2-3.9) 11/28/18 05:45 Albumin/Globulin Ratio 1.3 (1.0-2.1) 11/28/18 05:45 Triglycerides 90 mg/DL (0-149) D 11/28/18 05:45 Cholesterol 162 mg/dL (0-199) 11/28/18 05:45 LDL Cholesterol Direct 128 mg/dL (0-129) 11/28/18 05:45 HDL Cholesterol 29 MG/DL (30-70) L 11/28/18 05:45 TSH 3rd Generation 1.94 mIU/ML (0.46-4.68) 11/27/18 13:23 Urine Opiates Screen Negative (NEGATIVE) 11/27/18 15:00 Urine Methadone Screen Negative (NEGATIVE) 11/27/18 15:00 Ur Barbiturates Screen Negative (NEGATIVE) 11/27/18 15:00 Ur Phencyclidine Scrn Negative (NEGATIVE) 11/27/18 15:00 Ur Amphetamines Screen Negative (NEGATIVE) 11/27/18 15:00 U Benzodiazepines Scrn Negative (NEGATIVE) 11/27/18 15:00 U Oth Cocaine Metabols Negative (NEGATIVE) 11/27/18 15:00 U Cannabinoids Screen Positive (NEGATIVE) H 11/27/18 15:00 - Hospital Course Hospital Course: 28 yo male with history of Myocarditis (diagnosed at age 17) presented to the ED because of dypsnea for 3 days admitted for CHF exacerbation. ProBNP: 4400. ECHO 11/27/18: Systolic function severely impaired; EF: 20-25 %; Grade II pseudonormal filling dynamics; left atrium mildly dilated; moderate mitral and tricuspid valve regurg. RVSP 62 is mmHg. Troponins x3 negative. Cardiology consult, Dr. Hatch- [place], lisinopril, ASA and decreased lasix. Given patient had elevated D- dimer and tachycardia, CTA was done and PE was ruled out. Patient to be closely followed at the [facility] and will be referred to Dr. Chau. Discharge Exam - Head Exam Head Exam: NORMAL INSPECTION - Eye Exam Eye Exam: Normal appearance - ENT Exam ENT Exam: Mucous Membranes Moist - Respiratory Exam Respiratory Exam: Decreased Breath Sounds. absent: Accessory Muscle Use, Chest Wall Tenderness, Prolonged Expiratory Phase, Rales, Rhonchi, Wheezes, Respiratory Distress, Stridor - Cardiovascular Exam Cardiovascular Exam: REGULAR RHYTHM, +S1, +S2 - GI/Abdominal Exam GI & Abdominal Exam: Normal Bowel Sounds, Soft, Unremarkable. absent: Distended, Firm, Guarding, Hernia, Rebound, Rigid, Tenderness - Extremities Exam Extremities exam: normal capillary refill, normal inspection, pedal pulses present - Neurological Exam Neurological exam: Alert, Oriented x3 - Psychiatric Exam Psychiatric exam: Normal Affect, Normal Mood - Skin Skin Exam: Dry, Intact, Normal Color, Warm Discharge Plan - Discharge Medications Prescriptions: Aspirin [Aspirin Chewable] 81 mg PO DAILY #30 tab Carvedilol [Coreg] 12.5 mg PO Q12 #60 tab Furosemide [Lasix] 20 mg PO DAILY #30 tablet Furosemide [Lasix] 20 mg PO DAILY #30 tablet Lisinopril [Zestril] 5 mg PO DAILY #30 tab - Follow Up Plan Condition: STABLE Disposition: HOME/ ROUTINE Patient education suggested?: Yes Instructions: Cardiomyopathy (DC) Additional Instructions: Follow up with Dr. Lechuga December 03, 2018 @ 10 [facility] Please bring sol letter with him. Referrals: [facility] [place] [Outside] <Carlos Yanez - Last Filed: 11/28/18 17:23> Provider - Provider Date of Admission: 11/27/18 14:56 Attending physician: Carlso Yanez MD Consults: 11/27/18 14:57 Cardiology Consult Stat Comment: Consulting Provider: Jeffery Hatch Consulting Physician: Jeffery Hatch Reason for Consult: New onset CHF 11/27/18 22:32 Social Work Referral Routine Comment: Marijuana use Physician Instructions: Reason For Exam: As per Admission Assessment Hospital Course - Lab Results Lab Results: Most Recent Lab Values WBC 6.1 K/uL (4.8-10.8) 11/28/18 05:45 RBC 5.72 Mil/uL (4.40-5.90) 11/28/18 05:45 Hgb 16.3 g/dL (12.0-18.0) 11/28/18 05:45 Hct 50.2 % (35.0-51.0) 11/28/18 05:45 MCV 87.7 fl (80.0-94.0) 11/28/18 05:45 MCH 28.6 pg (27.0-31.0) 11/28/18 05:45 MCHC 32.6 g/dL (33.0-37.0) L 11/28/18 05:45 RDW 14.7 % (11.5-14.5) H 11/28/18 05:45 Plt Count 184 K/uL (130-400) 11/28/18 05:45 MPV 10.2 fl (7.2-11.7) 11/27/18 13:23 Neut % (Auto) 71.2 % (50.0-75.0) 11/27/18 13:23 Lymph % (Auto) 22.2 % (20.0-40.0) 11/27/18 13:23 [place] % (Auto) 5.7 % (0.0-10.0) 11/27/18 13:23 Eos % (Auto) 0.5 % (0.0-4.0) 11/27/18 13:23 Baso % (Auto) 0.4 % (0.0-2.0) 11/27/18 13:23 Neut # (Auto) 5.4 K/uL (1.8-7.0) 11/27/18 13:23 Lymph # (Auto) 1.7 K/uL (1.0-4.3) 11/27/18 13:23 [place] # (Auto) 0.4 K/uL (0.0-0.8) 11/27/18 13:23 Eos # (Auto) 0.0 K/uL (0.0-0.7) 11/27/18 13:23 Baso # (Auto) 0.0 K/uL (0.0-0.2) 11/27/18 13:23 PT 13.5 Seconds (9.8-13.1) H 11/27/18 13:23 INR 1.2 11/27/18 13:23 APTT 29.8 Seconds (25.6-37.1) 11/27/18 13:23 D-Dimer, Quantitative 778 ng/mlDDU (0-230) H 11/27/18 15:00 Sodium 137 mmol/l (132-148) 11/28/18 05:45 Potassium 3.6 MMOL/L (3.6-5.0) 11/28/18 05:45 Chloride 104 mmol/L (98-107) 11/28/18 05:45 Carbon Dioxide 27 mmol/L (22-30) 11/28/18 05:45 Anion Gap 10 (10-20) 11/28/18 05:45 BUN 14 mg/dl (9-20) 11/28/18 05:45 Creatinine 1.0 mg/dl (0.8-1.5) 11/28/18 05:45 Est GFR ( Amer) > 60 11/28/18 05:45 Est GFR (Non-Af Amer) > 60 11/28/18 05:45 Random Glucose 82 mg/dL (75-110) 11/28/18 05:45 Hemoglobin A1c 6.0 % (4.2-6.5) 11/28/18 05:45 Lactic Acid 1.8 mmol/L (0.7-2.1) 11/27/18 13:23 Calcium 8.5 mg/dL (8.4-10.2) 11/28/18 05:45 Iron 50 ug/dL (49-181) 11/28/18 07:30 TIBC 345 ug/dL (250-450) 11/28/18 07:30 % Saturation 15 % (20-55) L 11/28/18 07:30 Ferritin 88.2 ng/Ml (17.9-464) 11/28/18 07:30 Total Bilirubin 1.0 mg/dl (0.2-1.3) 11/28/18 05:45 AST 55 U/L (17-59) 11/28/18 05:45 ALT 96 U/L (21-72) H 11/28/18 05:45 Alkaline Phosphatase 47 U/L (38-126) 11/28/18 05:45 Troponin I 0.0760 ng/mL (0.00-0.120) 11/28/18 05:45 NT-Pro-B Natriuret Pep 4400 pg/ml (0-450) H 11/27/18 13:23 Total Protein 5.2 G/DL (6.3-8.2) L 11/28/18 05:45 Albumin 2.9 g/dL (3.5-5.0) L D 11/28/18 05:45 Globulin 2.3 gm/dL (2.2-3.9) 11/28/18 05:45 Albumin/Globulin Ratio 1.3 (1.0-2.1) 11/28/18 05:45 Triglycerides 90 mg/DL (0-149) D 11/28/18 05:45 Cholesterol 162 mg/dL (0-199) 11/28/18 05:45 LDL Cholesterol Direct 128 mg/dL (0-129) 11/28/18 05:45 HDL Cholesterol 29 MG/DL (30-70) L 11/28/18 05:45 TSH 3rd Generation 1.94 mIU/ML (0.46-4.68) 11/27/18 13:23 Urine Opiates Screen Negative (NEGATIVE) 11/27/18 15:00 Urine Methadone Screen Negative (NEGATIVE) 11/27/18 15:00 Ur Barbiturates Screen Negative (NEGATIVE) 11/27/18 15:00 Ur Phencyclidine Scrn Negative (NEGATIVE) 11/27/18 15:00 Ur Amphetamines Screen Negative (NEGATIVE) 11/27/18 15:00 U Benzodiazepines Scrn Negative (NEGATIVE) 11/27/18 15:00 U Oth Cocaine Metabols Negative (NEGATIVE) 11/27/18 15:00 U Cannabinoids Screen Positive (NEGATIVE) H 11/27/18 15:00 Attending/Attestation - Attestation I have personally seen and examined this patient.: Yes I have fully participated in the care of the patient.: Yes I have reviewed all pertinent clinical information, including history, physical exam and plan: Yes Notes (Text): 11/28/18 17:22 Patient seen and examined with resident. Case discussed and agreed with assessment. Patient discharged in stable condition.
[2018-11-28 16:09] VITALS: BP 118/92; PULSE 91; RESP 18; TEMP 97.6; O2SAT 97
[2018-12-01 00:04] LABS: CERULOPLASMIN 31 mg/dL (18-36)
== END 2018-11-28 16:50 | disposition home or self-care (01) | DRG 194 ==
LOC: H.ER 13:01 → H.ERHOLD 14:56 → H.TEL 20:19
DX: I50.43 Acute on chronic combined systolic (congestive) and diastolic (congestive) heart failure (principal); I42.0 Dilated cardiomyopathy; I08.1 Rheumatic disorders of both mitral and tricuspid valves; F12.90 Cannabis use, unspecified, uncomplicated; Z87.891 Personal history of nicotine dependence; Z86.79 Personal history of other diseases of the circulatory system